=== PATIENT | male | born 1995 | race Caucasian/White ===

== ENCOUNTER 2018-03-21 13:55 | Emergency (ER) | payer OTHER ==
[2018-03-21] MEDS ORDERED: TRIMETHOPRIM/SULFAMETHOX (DS) TAB PO (15:30)
[2018-03-21] MEDS ORDERED: CEPHALEXIN 500 MG CAP PO (15:30)
[2018-03-21] MEDS: ACETAMINOPHEN 500 MG TAB PO (15:38)
[2018-03-21] MEDS ORDERED: LIDOCAINE 1%/EPI (MDV) 50 ML INJ INJ (16:00)
[2018-03-21] MEDS: LIDOCAINE 1%/EPI (MDV) 50 ML INJ INJ ×3 (16:24→16:31)
== END 2018-03-21 16:58 | disposition home or self-care (01) ==
LOC: FTE 13:55
DX: L02.416 Cutaneous abscess of left lower limb (principal); F17.210 Nicotine dependence, cigarettes, uncomplicated
CPT/HCPCS: 10060; 99284-25

== ENCOUNTER 2018-12-12 00:09 | Emergency (ER) | payer SELFPAY | END 2018-12-12 02:25 | disposition left against medical advice (07) | LOC: FTE 00:09 | DX: Z53.21 Procedure and treatment not carried out due to patient leaving prior to being seen by health care provider (principal) ==